=== PATIENT | male | born 1950 | race Caucasian/White ===

== ENCOUNTER 2016-09-30 06:24 | Day surgery (SDC) | payer MEDICARE, BC ==
[~2016-09-30] VITALS: Ht 185.4 cm; Wt 119.1 kg
[~2016-09-30 06:24] MED LIST: ASPIRIN E.C. 8181 MG PO; CELEXA 20MG20 MG/TAB PO; GLUCOPHAGE500 MG/TAB PO; L-LYSINE500 M1 PO; PROSCAR 5MG5 MG PO
[2016-09-30] MEDS ORDERED: VALTREX1 GM PO (06:54)
[2016-09-30] MEDS ORDERED: HYGROTON 2525 MG/TAB PO (06:55)
[2016-09-30 06:56] VITALS: BP 137/80; PULSE 62; TEMP 97.9
[2016-09-30] MEDS ORDERED: COZAAR 25MG25 MG/TAB PO (06:56)
[2016-09-30] MEDS ORDERED: B-12 500 MCG PO (06:57)
[2016-09-30] MEDS ORDERED: TYLENOL 500MG500 MG PO (06:57)
[2016-09-30] MEDS ORDERED: FIBERCON PO (06:58)
[2016-09-30 08:20] VITALS: BP 110/68; PULSE 65; TEMP 97
[2016-09-30 08:35] VITALS: BP 116/70; PULSE 66
== END 2016-09-30 09:45 | disposition home or self-care (01) ==
LOC: SDCO 06:24
DX: Z12.31 Encounter for screening mammogram for malignant neoplasm of breast (principal); Z86.010 Personal history of colon polyps; G47.33 Obstructive sleep apnea (adult) (pediatric); I10 Essential (primary) hypertension; E11.40 Type 2 diabetes mellitus with diabetic neuropathy, unspecified; F32.9 Major depressive disorder, single episode, unspecified; Z79.899 Other long term (current) drug therapy; Z79.82 Long term (current) use of aspirin; Z79.84 Long term (current) use of oral hypoglycemic drugs
CPT/HCPCS: OP; J2250; J3010; J7030

== ENCOUNTER 2016-11-09 08:15 | Outpatient (RCR) | payer MEDICARE, BC ==
[~2016-11-09 08:15] MED LIST changes: +B-12 500 MCG PO; +COZAAR 25MG25 MG/TAB PO; +FIBERCON PO; +HYGROTON 2525 MG/TAB PO; +TYLENOL 500MG500 MG PO; +VALTREX1 GM PO
== END 2016-11-09 12:00 | disposition home or self-care (01) ==
LOC: WSST 08:15
DX: F80.81 Childhood onset fluency disorder (principal)
CPT/HCPCS: G9174-GN; G9175-GN; G9176-GN

== ENCOUNTER 2021-01-20 10:21 | Outpatient (CLI) | payer MEDICARE, BC ==
[2021-01-20] VITALS (7 sets, daily range): BP systolic 150–163; BP diastolic 68–78; PULSE 52–66; TEMP 99.1
[2021-01-20] MEDS ORDERED: GLUCOTROL XL2.5 MG PO (11:57)
[2021-01-20] MEDS ORDERED: OMEGA-3 1000 MG1 CAP PO (11:58)
[2021-01-20] MEDS ORDERED: LIPITOR20 MG PO (11:58)
[2021-01-20] MEDS ORDERED: COLACE 100100 MG/CAP PO (11:58)
[2021-01-20] MEDS ORDERED: TYLENOL 500MG500 MG PO (11:59)
== END 2021-01-20 13:00 | disposition home or self-care (01) ==
LOC: EUO 10:21
DX: U07.1 COVID-19 (principal)
CPT/HCPCS: M0243; Q0244